=== PATIENT | female | born 1990 | race Two or more races ===

== ENCOUNTER 2022-09-04 07:20 | Inpatient (IN) | payer OTHER ==
[2022-09-04 09:16] LABS: INR 1.01 (0.83-1.09); PROTHROMBIN TIME (PATIENT) 11.7 SEC (9.7-13.0)
[2022-09-04 09:18] LABS: ACTIVATED PTT 29.8 SECONDS (25.2-36.5)
[2022-09-04 09:20] LABS: BASO % 0.3 % (0-2.0); HEMATOCRIT 36.4 % (32.4-45.2); HEMOGLOBIN 11.9 GM/dL (10.7-15.3); LYMPH % 22.6 % (8-40); MCHC 32.7 g/dl (32.0-36.0); MEAN CELL VOLUME 85.7 fl (80-96); MEAN PLT VOLUME 8.9 fl (7.5-11.1); MONO % 7.9 % (3.8-10.2); NEUT % 68.2 % (42.8-82.8); PLATELET COUNT 228 10^3/uL (134-434); RBC 4.25 M/mm3 (3.60-5.2); RDW 13.1 % (11.6-15.6); WHITE BLOOD COUNT 6.3 K/mm3 (4.0-10.0)
[2022-09-04 09:26] LABS: POTASSIUM 3.7 mmol/L (3.5-5.1)
[2022-09-04 09:27] LABS: CALCIUM 9.8 mg/dL (8.5-10.1)
[2022-09-04 09:28] LABS: BLOOD UREA NITROGEN 10.4 mg/dL (7-18)
[2022-09-04 09:31] LABS: CREATININE 0.4 mg/dL (0.55-1.3)
[2022-09-04] MEDS ORDERED: OXYTOCIN 30 UNITS in 0.9% NS 30 UNIT/500 ML INFUS.BAG IVPB SCH (09:45)
[2022-09-04] MEDS: ELECTROLYTE-148 SOLN 1,000 ML IV SCH ×2 (09:45→14:00)
[2022-09-04] MEDS ORDERED: AMPICILLIN SODIUM 2 GM VIAL ONE (09:52)
[2022-09-04] MEDS ORDERED: BUTORPHANOL TARTRATE 1 MG/ML VIAL IVPB PRN (09:55)
[2022-09-04] MEDS ORDERED: PROMETHAZINE HCL 25 MG/1 ML VIAL IVPB ONE (09:55)
[2022-09-04] MEDS ORDERED: AMPICILLIN - 2 GM in SODIUM CHLORIDE 100 ML IVPB ONE (10:00)
[2022-09-04] MEDS ORDERED: OXYTOCIN 30 UNITS in 0.9% NS 30 UNIT/500 ML INFUS.BAG IVPB ONE (10:30)
[2022-09-04 10:36] VITALS: BMI 34.2
[2022-09-04 12:39] LABS: HIV INTERPRETATION NEGATIVE (NEGATIVE)
[2022-09-04] MEDS: AMPICILLIN - 1 GM in SODIUM CHLORIDE 100 ML IVPB SCH ×3 (14:00→22:15)
[2022-09-04] MEDS ORDERED: AMPICILLIN SODIUM 1 GM VIAL ONE ×3 (14:01→22:10)
[2022-09-04] MEDS ORDERED: OXYTOCIN 20 UNITS in 0.9% NS 20 UNIT/1,000 ML INFUS.BAG IV ONE (16:09)
[2022-09-04] MEDS ORDERED: FENTANYL/BUPIVACAINE/NS/PF - PCEA - 50 ML DISP.SYRIN EP ONE ×2 (17:20→21:18)
[2022-09-04] MEDS ORDERED: NALOXONE HCL 0.4 MG/ML VIAL IVPUSH PRN (17:54)
[2022-09-04] MEDS ORDERED: BUPIVACAINE HCL/PF 0.5% (5MG/ML) 10 ML VIAL ONE (17:56)
[2022-09-04] MEDS ORDERED: LIDO 2%/EPI 1:200000 PRESRVFRE (20 ML SDVIAL) ONE ×2 (17:56→20:52)
[2022-09-04] MEDS: FENTANYL/BUPIVACAINE/NS/PF - PCEA - 50 ML DISP.SYRIN EP SCH ×2 (18:15→21:45)
[2022-09-04] MEDS ORDERED: FENTANYL CITRATE/PF 50 MCG/ML VIAL ONE ×2 (18:54→21:27)
[2022-09-05] MEDS ORDERED: BISACODYL 10 MG SUPP.RECT RC PRN
[2022-09-05] MEDS ORDERED: BENZOCAINE 28 GM HEMORRHOIDAL OINTMENT TP PRN
[2022-09-05] MEDS ORDERED: BENZOCAINE 20% 57 GM BOTTLE TP PRN
[2022-09-05] MEDS ORDERED: OXYTOCIN 20 UNITS in 0.9% NS 20 UNIT/1,000 ML INFUS.BAG IV SCH
[2022-09-05] MEDS ORDERED: METHYLERGONOVINE MALEATE 0.2 MG/1 ML AMP IM PRN
[2022-09-05] MEDS ORDERED: oxyCODONE HCL 5 MG TABLET PO PRN
[2022-09-05] MEDS ORDERED: WITCH HAZEL 50% (TUCKS) 40 PAD/JAR PAD TP PRN
[2022-09-05] MEDS ORDERED: ACETAMINOPHEN 325 MG TABLET (FP) ONE (02:51)
[2022-09-05] MEDS: ACETAMINOPHEN 325 MG TABLET (FP) PO PRN (02:55)
[2022-09-05 07:42] LABS: BASO % 0.2 % (0-2.0); EOS % 0.1 % (0-4.5); HEMATOCRIT 34.2 % (32.4-45.2); HEMOGLOBIN 11.2 GM/dL (10.7-15.3); LYMPH % 7.1 % (8-40); MCHC 32.6 g/dl (32.0-36.0); MEAN CELL VOLUME 85.8 fl (80-96); MEAN PLT VOLUME 8.7 fl (7.5-11.1); MONO % 4.8 % (3.8-10.2); NEUT % 87.8 % (42.8-82.8); PLATELET COUNT 196 10^3/uL (134-434); RBC 3.99 M/mm3 (3.60-5.2); RDW 13.1 % (11.6-15.6); WHITE BLOOD COUNT 8.6 K/mm3 (4.0-10.0)
[2022-09-05] MEDS ORDERED: FERROUS SO4 325 MG TABLET (FP) ONE ×2 (09:06→12:23)
[2022-09-05] MEDS ORDERED: PRENATAL VITAMINS W/ FOLIC ACID TABLET (FP) PO ONE (09:06)
[2022-09-05] MEDS ORDERED: IBUPROFEN 600 MG TABLET (FP) PO ONE (09:08)
[2022-09-05] MEDS: IBUPROFEN 600 MG TABLET (FP) PO PRN ×3 (09:14→21:25)
[2022-09-05] MEDS: PRENATAL VITAMINS W/ FOLIC ACID TABLET (FP) PO SCH (09:14)
[2022-09-05] MEDS: FERROUS SO4 325 MG TABLET (FP) PO SCH ×3 (09:14→17:49)
[2022-09-05 13:59] VITALS: RESP 18
[2022-09-06] MEDS: IBUPROFEN 600 MG TABLET (FP) PO PRN ×2 (06:11→12:53)
[2022-09-06] MEDS ORDERED: DIPHTH,PERTUSS(ACELL),TET 0.5 ML DISP.SYRIN IM ONE (10:00)
[2022-09-06 10:15] VITALS: BP 114/75; PULSE 73; TEMP 97.7
[2022-09-06] MEDS: FERROUS SO4 325 MG TABLET (FP) PO SCH ×2 (12:54)
[2022-09-06] MEDS: PRENATAL VITAMINS W/ FOLIC ACID TABLET (FP) PO SCH (12:54)
[2022-09-06] MEDS: ACETAMINOPHEN 325 MG TABLET (FP) PO PRN (14:26)
[2022-09-06] MEDS ORDERED: SENNOSIDES/DOCUSATE COMBO (SENNA PLUS) TABLET (UD) PO PRN (22:00)
== END 2022-09-06 18:43 | disposition home or self-care (01) | DRG 560 ==
LOC: JLDR 07:20 → J3W 09-05 14:30
PROVIDERS: ADMIT Obstetrics & Gynecology; ATTEND Obstetrics & Gynecology
PROC: 10E0XZZ Delivery of Products of Conception, External Approach (ICD-10-PCS; principal; 2022-09-04)
PROC: 10907ZC Drainage of Amniotic Fluid, Therapeutic from Products of Conception, Via Natural or Artificial Opening (ICD-10-PCS; 2022-09-04)
DX: O70.0 First degree perineal laceration during delivery (principal); Z3A.39 39 weeks gestation of pregnancy; Z37.0 Single live birth
CPT/HCPCS: 36415; 80048; 85025; 85610; 85730; 86780; 86850; 86900; 86901; 87389; 90715